=== PATIENT | female | born 1975 | race African-American/Black ===

== ENCOUNTER 2020-12-02 06:49 | Emergency (ER) | payer OTHER ==
[~2020-12-02] VITALS: Ht 154.9 cm; Wt 61.2 kg
[2020-12-02 06:58] VITALS: BP 103/69
--- NOTE | 2020-12-02 07:04 | NUR ---
TO BED AMBULATORY
--- NOTE | 2020-12-02 08:12 | NUR ---
45YO F C/O DIZZINESS, NUMBNESS OF LLE AND LUE X 1 WEEK. DENIES CHEST PAIN. ALSO COMPLAINS OF TOOTHACHE, JAW AND HEADACHE X 1 MONTH. DENIES FEVER. IN ED, PT A0X4. 5/5 MOTOR STRENGTH ON ALL EXTREMITIES. PT POSITIONED COMFORTABLY IN BED WITH 2 SIDERAILS UP. ERMD MADE AWARE OF PT STATUS. PMH: NONE MEDS: NONE NKA
[2020-12-02] MEDS ORDERED: AMOX500C25 PO (09:09)
[2020-12-02] MEDS ORDERED: NAPR-54 PO (09:09)
[2020-12-02 09:19] VITALS: BP 103/69
--- NOTE | 2020-12-02 09:20 | NUR ---
Patient discharged with v/s stable. Written and verbal after care instructions given and explained. Patient alert, oriented and verbalized understanding of instructions. Ambulatory with steady gait. All questions addressed prior to discharge. ID band removed. Patient advised to follow up with PMD. Rx of AMOXICILLIN, NAPROXEN given. Patient educated on indication of medication including possible reaction and side effects. Opportunity to ask questions provided and answered.
== END 2020-12-02 09:20 | disposition home or self-care (01) ==
LOC: MED 06:49
DX: R51.9 Headache, unspecified (principal); K08.89 Other specified disorders of teeth and supporting structures; R42 Dizziness and giddiness; Z79.899 Other long term (current) drug therapy
CPT/HCPCS: 70450; 70486; 99285